=== PATIENT | male | born 1960 | race Caucasian/White ===

== ENCOUNTER 2018-03-18 18:06 | Inpatient (IN) | payer MEDICAID, OTHER ==
[~2018-03-18] VITALS: Ht 188 cm; Wt 90.7 kg
[2018-03-18 19:56] LABS: Basophils # (auto) 0.1 uL; Eosinophils # (auto) 0.1 uL; Eosinophils % (auto) 1.9 % (0.0-7.0); Hematocrit 45.5 % (41.0-53.0); Hemoglobin 15.9 g/dL (13.5-17.5); Lymphocytes # (auto) 1.8 uL; Lymphocytes % (auto) 26.6 % (10.0-50.0); Mean Corpuscular Hemoglobin 32.2 pg (28.0-32.0); Mean Corpuscular Hgb Conc. 34.9 g/dL (32.0-36.0); Mean Corpuscular Volume 92.2 fL (80.0-100.0); Monocytes # (auto) 0.4 uL; Monocytes % (auto) 5.2 % (0.0-12.0); Neutrophils # (auto) 4.5 uL; Neutrophils % (auto) 65.3 % (37.0-80.0); Nucleated Red Blood Cells % 0.1 %; Platelet Count (auto) 175 10^3/uL (140-450); Red Blood Cells 4.93 10^6/uL (4.5-5.90); White Blood Cell 6.9 10^3/uL (4.4-10.8)
[2018-03-18 20:39] LABS: Alanine Aminotransferase 26 U/L (16-61); Albumin 3.5 g/dL (3.4-5.0); Anion Gap 10 (5-15); Aspartate Aminotransferase 15 U/L (15-37); BUN/Creatinine Ratio 5.3; Blood Urea Nitrogen 8 mg/dL (7-18); Calcium 8.2 mg/dL (8.5-10.1); Carbon Dioxide 25 mmol/L (21-32); Chloride 110 mmol/L (98-107); GFR African American 62 mL/min; GFR Non-African American 51 mL/min; Glucose 98 mg/dL (74-106); INR 2.36 (0.9-1.15); Partial Thromboplastin Time 31.2 sec (23.78-33.04); Potassium 3.8 mmol/L (3.5-5.1); Prothrombin Time 24.1 sec (9.27-12.13); Sodium 145 mmol/L (136-145)
[2018-03-18 20:43] LABS: Alkaline Phosphatase 132 U/L (45-117); Bilirubin, Total 0.3 mg/dL (0.2-1.0); Total Protein 7.2 g/dL (6.4-8.2)
[2018-03-18] MEDS ORDERED: ONDANSETRON HCL 4 MG/2 ML VIAL IV ONE (22:15)
[2018-03-18] MEDS ORDERED: ASPirin 81 mg TAB PO ONE (22:15)
[2018-03-18] MEDS ORDERED: MORPHINE SULF INJ 2 MG/ML SYRINGE 1ML IV ONE (22:15)
[2018-03-18] MEDS ORDERED: NITROGLYCERIN 0.4 MG SL TAB SL PRN (23:30)
[2018-03-18] MEDS ORDERED: MORPHINE SULF INJ 2 MG/ML SYRINGE 1ML IV PRN (23:30)
[2018-03-18] MEDS ORDERED: ACETAMINOPHEN 500 MG TAB PO PRN (23:30)
[2018-03-18] MEDS ORDERED: ONDANSETRON HCL 4 MG/2 ML VIAL IV PRN (23:30)
[2018-03-19] VITALS (8 sets, daily range): BP systolic 129–162; BP diastolic 83–99
[2018-03-19 00:51] LABS: Anion Gap 9 (5-15); BUN/Creatinine Ratio 6.9; Blood Urea Nitrogen 9 mg/dL (7-18); Calcium 7.7 mg/dL (8.5-10.1); Carbon Dioxide 23 mmol/L (21-32); Chloride 113 mmol/L (98-107); GFR African American 72 mL/min; GFR Non-African American 60 mL/min; Glucose 118 mg/dL (74-106); Potassium 3.4 mmol/L (3.5-5.1); Sodium 145 mmol/L (136-145)
[2018-03-19] MEDS ORDERED: HYDROcodone-ACET 5/325MG TAB PO PRN (01:30)
[2018-03-19] MEDS: MORPHINE SULF INJ 2 MG/ML SYRINGE 1ML IV PRN ×3 (01:55→14:10)
[2018-03-19 07:39] LABS: INR 2.29 (0.9-1.15); Partial Thromboplastin Time 31.2 sec (23.78-33.04); Prothrombin Time 23.4 sec (9.27-12.13)
[2018-03-19 07:51] LABS: Basophils # (auto) 0 uL; Basophils % (auto) 0.8 % (0.0-2.0); Eosinophils # (auto) 0.2 uL; Eosinophils % (auto) 2.9 % (0.0-7.0); Hematocrit 42.7 % (41.0-53.0); Hemoglobin 14.7 g/dL (13.5-17.5); Lymphocytes % (auto) 35.3 % (10.0-50.0); Mean Corpuscular Hemoglobin 31.9 pg (28.0-32.0); Mean Corpuscular Hgb Conc. 34.5 g/dL (32.0-36.0); Mean Corpuscular Volume 92.3 fL (80.0-100.0); Monocytes # (auto) 0.3 uL; Neutrophils # (auto) 3.1 uL; Nucleated Red Blood Cells % 0.1 %; Platelet Count (auto) 159 10^3/uL (140-450); Red Blood Cells 4.62 10^6/uL (4.5-5.90); Red Cell Distribution Width 14.8 % (11.8-14.3); White Blood Cell 5.7 10^3/uL (4.4-10.8)
[2018-03-19] MEDS: NICOTINE 14 MG/24HR TOPICAL PATCH TD SCH (09:13)
[2018-03-19] MEDS: METOPROLOL SUCCINATE XL 50 MG TAB PO SCH (09:14)
[2018-03-19] MEDS: amLODIPine BESYLATE 5 MG TAB PO SCH (09:14)
[2018-03-19] MEDS: FAMOTIDINE 20 MG TAB PO SCH (09:14)
[2018-03-19] MEDS ORDERED: IOHEXOL 350 MG/ML 100ML IJ ONE (12:21)
[2018-03-19] MEDS ORDERED: WARF6TAB21 PO ×2 (13:10)
[2018-03-19] MEDS ORDERED: AMLO5TAB2 PO (13:10)
[2018-03-19] MEDS ORDERED: OMEP20TA PO (13:10)
[2018-03-19] MEDS ORDERED: TAMS0.4C36 PO (13:10)
[2018-03-19] MEDS ORDERED: METO-169 PO (13:10)
[2018-03-19] MEDS ORDERED: NIAC1TAB PO (13:10)
[2018-03-19] MEDS ORDERED: ALLO300T2 PO (13:10)
[2018-03-19] MEDS ORDERED: ATOR80TA PO (13:10)
[2018-03-19] MEDS: WARFARIN SODIUM 2 MG TAB PO SCH (17:00)
[2018-03-19] MEDS: TAMSULOSIN HYDROCHLORIDE 0.4 MG CAP PO SCH (17:12)
[2018-03-19] MEDS: WARFARIN SODIUM 1 MG TAB PO SCH (17:12)
[2018-03-19] MEDS: ALBUTEROL SULF 2.5 MG/0.5ML(0.5%) NEB SOLN NEB PRN (19:24)
[2018-03-19] MEDS: Niacin SR 500mg TAB PO SCH (22:03)
[2018-03-19] MEDS: ATORVASTATIN 20 MG TAB PO SCH (22:03)
[2018-03-19] MEDS: TEMAZEPAM 15 MG CAP PO PRN (22:04)
[2018-03-20] MEDS: MORPHINE SULF INJ 2 MG/ML SYRINGE 1ML IV PRN ×5 (00:41→23:41)
[2018-03-20 05:15] VITALS: BP 126/79
[2018-03-20 06:30] LABS: Basophils # (auto) 0 uL; Basophils % (auto) 0.6 % (0.0-2.0); Eosinophils # (auto) 0.1 uL; Eosinophils % (auto) 1.8 % (0.0-7.0); Hematocrit 44.7 % (41.0-53.0); Hemoglobin 15.4 g/dL (13.5-17.5); Lymphocytes # (auto) 1.9 uL; Lymphocytes % (auto) 29.6 % (10.0-50.0); Mean Corpuscular Hemoglobin 31.8 pg (28.0-32.0); Mean Corpuscular Hgb Conc. 34.5 g/dL (32.0-36.0); Mean Corpuscular Volume 92.3 fL (80.0-100.0); Monocytes # (auto) 0.4 uL; Monocytes % (auto) 5.7 % (0.0-12.0); Neutrophils # (auto) 3.9 uL; Neutrophils % (auto) 62.3 % (37.0-80.0); Nucleated Red Blood Cells % 0.1 %; Platelet Count (auto) 146 10^3/uL (140-450); Red Blood Cells 4.85 10^6/uL (4.5-5.90); Red Cell Distribution Width 14.6 % (11.8-14.3); White Blood Cell 6.3 10^3/uL (4.4-10.8)
[2018-03-20 06:48] LABS: INR 2.16 (0.9-1.15); Partial Thromboplastin Time 30.7 sec (23.78-33.04); Prothrombin Time 22.1 sec (9.27-12.13)
[2018-03-20 06:58] LABS: Anion Gap 8 (5-15); BUN/Creatinine Ratio 8.8; Blood Urea Nitrogen 11 mg/dL (7-18); Calcium 8.1 mg/dL (8.5-10.1); Carbon Dioxide 26 mmol/L (21-32); Chloride 106 mmol/L (98-107); GFR African American 76 mL/min; GFR Non-African American 63 mL/min; Glucose 95 mg/dL (74-106); Potassium 3.8 mmol/L (3.5-5.1); Sodium 140 mmol/L (136-145)
[2018-03-20 07:58] VITALS: BP 129/84
[2018-03-20 08:00] VITALS: BP 129/84
[2018-03-20] MEDS: FAMOTIDINE 20 MG TAB PO SCH (09:50)
[2018-03-20] MEDS: METOPROLOL SUCCINATE XL 50 MG TAB PO SCH (09:50)
[2018-03-20] MEDS: amLODIPine BESYLATE 5 MG TAB PO SCH (09:50)
[2018-03-20] MEDS: NICOTINE 14 MG/24HR TOPICAL PATCH TD SCH (09:50)
[2018-03-20] MEDS ORDERED: NIACIN 100 MG TAB PO SCH (10:00)
[2018-03-20] MEDS ORDERED: IOHEXOL 350 MG/ML 100ML IJ ONE (10:29)
[2018-03-20] MEDS: predniSONE 20 MG TAB PO SCH (11:29)
[2018-03-20] MEDS: diphenhdrAMINE HCL 25 MG CAP PO SCH (11:29)
[2018-03-20 11:47] VITALS: BP 117/81
[2018-03-20] MEDS ORDERED: predniSONE 20 MG TAB PO ONE ×2 (14:00→21:00)
[2018-03-20] MEDS: TAMSULOSIN HYDROCHLORIDE 0.4 MG CAP PO SCH (17:11)
[2018-03-20] MEDS: WARFARIN SODIUM 2 MG TAB PO SCH (17:11)
[2018-03-20 17:36] VITALS: BP 131/77
[2018-03-20] MEDS: Niacin SR 500mg TAB PO SCH (21:36)
[2018-03-20] MEDS: ATORVASTATIN 20 MG TAB PO SCH (21:36)
[2018-03-20 22:00] VITALS: BP 129/75
[2018-03-20] MEDS: ALBUTEROL SULF 2.5 MG/0.5ML(0.5%) NEB SOLN NEB PRN (23:06)
[2018-03-21] MEDS ORDERED: diphenhdrAMINE HCL 25 MG CAP PO ONE (02:00)
[2018-03-21] MEDS ORDERED: predniSONE 20 MG TAB PO ONE (02:00)
[2018-03-21] MEDS ORDERED: IOHEXOL 350 MG/ML 100ML IJ ONE (02:24)
[2018-03-21 05:00] VITALS: BP 128/76
[2018-03-21 06:48] LABS: Basophils # (auto) 0 uL; Eosinophils # (auto) 0 uL; Hematocrit 47.8 % (41.0-53.0); Hemoglobin 16.3 g/dL (13.5-17.5); Lymphocytes # (auto) 0.7 uL; Lymphocytes % (auto) 4.4 % (10.0-50.0); Mean Corpuscular Hemoglobin 31.2 pg (28.0-32.0); Mean Corpuscular Hgb Conc. 34.1 g/dL (32.0-36.0); Mean Corpuscular Volume 91.6 fL (80.0-100.0); Monocytes # (auto) 0.1 uL; Neutrophils # (auto) 14.1 uL; Neutrophils % (auto) 94.6 % (37.0-80.0); Platelet Count (auto) 173 10^3/uL (140-450); Red Blood Cells 5.22 10^6/uL (4.5-5.90); Red Cell Distribution Width 14.4 % (11.8-14.3); White Blood Cell 14.9 10^3/uL (4.4-10.8)
[2018-03-21 07:02] LABS: INR 2.82 (0.9-1.15); Partial Thromboplastin Time 31.3 sec (23.78-33.04); Prothrombin Time 28.5 sec (9.27-12.13)
[2018-03-21 07:09] LABS: BUN/Creatinine Ratio 10.8; Calcium 8.4 mg/dL (8.5-10.1); Potassium 4.5 mmol/L (3.5-5.1)
[2018-03-21 07:45] LABS: Basophils # (auto) 0 uL; Basophils % (auto) 0.1 % (0.0-2.0); Eosinophils # (auto) 0 uL; Hematocrit 47.4 % (41.0-53.0); Hemoglobin 16.3 g/dL (13.5-17.5); Lymphocytes # (auto) 0.8 uL; Lymphocytes % (auto) 4.3 % (10.0-50.0); Mean Corpuscular Hemoglobin 31.5 pg (28.0-32.0); Mean Corpuscular Hgb Conc. 34.4 g/dL (32.0-36.0); Mean Corpuscular Volume 91.5 fL (80.0-100.0); Monocytes # (auto) 0.2 uL; Neutrophils # (auto) 16.5 uL; Neutrophils % (auto) 94.6 % (37.0-80.0); Nucleated Red Blood Cells % 0.4 %; Platelet Count (auto) 182 10^3/uL (140-450); Red Blood Cells 5.18 10^6/uL (4.5-5.90); Red Cell Distribution Width 14.6 % (11.8-14.3); White Blood Cell 17.5 10^3/uL (4.4-10.8)
[2018-03-21 09:01] VITALS: BP 122/74
[2018-03-21] MEDS: diphenhdrAMINE HCL 25 MG CAP PO SCH (09:06)
[2018-03-21] MEDS: FAMOTIDINE 20 MG TAB PO SCH (09:06)
[2018-03-21] MEDS: MORPHINE SULF INJ 2 MG/ML SYRINGE 1ML IV PRN ×3 (09:06→21:00)
[2018-03-21] MEDS: METOPROLOL SUCCINATE XL 50 MG TAB PO SCH (09:07)
[2018-03-21] MEDS: amLODIPine BESYLATE 5 MG TAB PO SCH (09:07)
[2018-03-21] MEDS: predniSONE 20 MG TAB PO SCH (09:07)
[2018-03-21] MEDS: NICOTINE 14 MG/24HR TOPICAL PATCH TD SCH (09:08)
[2018-03-21 13:00] VITALS: BP 103/59
[2018-03-21 17:00] VITALS: BP 114/73
[2018-03-21] MEDS: WARFARIN SODIUM 1 MG TAB PO SCH (17:00)
[2018-03-21] MEDS: WARFARIN SODIUM 2 MG TAB PO SCH (17:00)
[2018-03-21] MEDS: TAMSULOSIN HYDROCHLORIDE 0.4 MG CAP PO SCH (17:16)
[2018-03-21 22:00] VITALS: BP 120/77
[2018-03-21] MEDS: TEMAZEPAM 15 MG CAP PO PRN (22:15)
[2018-03-21] MEDS: ATORVASTATIN 20 MG TAB PO SCH (22:15)
[2018-03-21] MEDS: Niacin SR 500mg TAB PO SCH (22:15)
[2018-03-22 05:00] VITALS: BP 104/70
[2018-03-22 07:29] LABS: Basophils # (auto) 0 uL; Eosinophils # (auto) 0 uL; Hematocrit 44.2 % (41.0-53.0); Lymphocytes # (auto) 1.6 uL; Lymphocytes % (auto) 8.5 % (10.0-50.0); Mean Corpuscular Hemoglobin 31.4 pg (28.0-32.0); Mean Corpuscular Hgb Conc. 33.9 g/dL (32.0-36.0); Mean Corpuscular Volume 92.6 fL (80.0-100.0); Monocytes # (auto) 0.5 uL; Neutrophils # (auto) 16.3 uL; Neutrophils % (auto) 88.5 % (37.0-80.0); Platelet Count (auto) 176 10^3/uL (140-450); Red Blood Cells 4.77 10^6/uL (4.5-5.90); Red Cell Distribution Width 14.7 % (11.8-14.3); White Blood Cell 18.4 10^3/uL (4.4-10.8)
[2018-03-22 07:39] LABS: INR 2.99 (0.9-1.15); Partial Thromboplastin Time 28.8 sec (23.78-33.04); Prothrombin Time 30.1 sec (9.27-12.13)
[2018-03-22 07:47] LABS: Albumin 3.1 g/dL (3.4-5.0); BUN/Creatinine Ratio 18.1; Bilirubin, Total 0.4 mg/dL (0.2-1.0); Potassium 3.8 mmol/L (3.5-5.1); Total Protein 6.2 g/dL (6.4-8.2)
[2018-03-22 09:00] VITALS: BP 119/76
[2018-03-22 09:43] VITALS: BP 119/76
[2018-03-22] MEDS: MORPHINE SULF INJ 2 MG/ML SYRINGE 1ML IV PRN ×3 (10:29→21:50)
[2018-03-22] MEDS: diphenhdrAMINE HCL 25 MG CAP PO SCH (10:33)
[2018-03-22] MEDS: amLODIPine BESYLATE 5 MG TAB PO SCH (10:34)
[2018-03-22] MEDS: predniSONE 20 MG TAB PO SCH (10:34)
[2018-03-22] MEDS: FAMOTIDINE 20 MG TAB PO SCH (10:35)
[2018-03-22] MEDS: METOPROLOL SUCCINATE XL 50 MG TAB PO SCH (10:35)
[2018-03-22] MEDS: NICOTINE 14 MG/24HR TOPICAL PATCH TD SCH (10:36)
[2018-03-22] MEDS: SOD CHL 0.45% 1,000 ML IV SCH ×2 (10:45→20:45)
[2018-03-22 13:00] VITALS: BP 127/81
[2018-03-22 17:02] VITALS: BP 139/80
[2018-03-22] MEDS: TAMSULOSIN HYDROCHLORIDE 0.4 MG CAP PO SCH (17:25)
[2018-03-22] MEDS: ALBUTEROL SULF 2.5 MG/0.5ML(0.5%) NEB SOLN NEB PRN (19:49)
[2018-03-22] MEDS: ATORVASTATIN 20 MG TAB PO SCH (21:48)
[2018-03-22] MEDS: Niacin SR 500mg TAB PO SCH (21:49)
[2018-03-22] MEDS: TEMAZEPAM 15 MG CAP PO PRN (21:49)
[2018-03-22 22:00] VITALS: BP 141/86
[2018-03-23] MEDS: MORPHINE SULF INJ 2 MG/ML SYRINGE 1ML IV PRN ×3 (03:27→22:06)
[2018-03-23] MEDS: SOD CHL 0.45% 1,000 ML IV SCH ×2 (03:39→16:45)
[2018-03-23 04:37] VITALS: BP 127/89
[2018-03-23] MEDS ORDERED: IODIXANOL 320MG/ML 100ML BTL IV ONE ×2 (07:14→09:17)
[2018-03-23] MEDS ORDERED: LIDOCAINE 2%HCL (LOCAL ANESTH.) INJ 10ml MDV ONE (07:14)
[2018-03-23 07:39] LABS: Basophils # (auto) 0 uL; Basophils % (auto) 0.1 % (0.0-2.0); Eosinophils # (auto) 0 uL; Hematocrit 44.6 % (41.0-53.0); Hemoglobin 15.5 g/dL (13.5-17.5); Lymphocytes # (auto) 1.9 uL; Lymphocytes % (auto) 15.1 % (10.0-50.0); Mean Corpuscular Hemoglobin 31.9 pg (28.0-32.0); Mean Corpuscular Hgb Conc. 34.7 g/dL (32.0-36.0); Monocytes # (auto) 0.7 uL; Monocytes % (auto) 5.5 % (0.0-12.0); Neutrophils # (auto) 9.8 uL; Neutrophils % (auto) 79.3 % (37.0-80.0); Nucleated Red Blood Cells % 0.1 %; Platelet Count (auto) 165 10^3/uL (140-450); Red Blood Cells 4.85 10^6/uL (4.5-5.90); Red Cell Distribution Width 14.8 % (11.8-14.3); White Blood Cell 12.3 10^3/uL (4.4-10.8)
[2018-03-23] MEDS ORDERED: FAMOTIDINE (10MG/ML) 2ML VL IV ONE (07:45)
[2018-03-23 07:52] LABS: INR 1.95 (0.9-1.15); Partial Thromboplastin Time 26.4 sec (23.78-33.04); Prothrombin Time 20.1 sec (9.27-12.13)
[2018-03-23 07:56] LABS: BUN/Creatinine Ratio 17.3; Calcium 7.8 mg/dL (8.5-10.1)
[2018-03-23] MEDS ORDERED: methylPREDNISolone SOD SUCC 125 MG/2 ML VL ONE (08:54)
[2018-03-23] MEDS ORDERED: fentaNYL CITRATE 100 MCG/2 ML VL ONE (08:55)
[2018-03-23] MEDS ORDERED: diphenhdrAMINE HCL 50 MG/1 ML VL ONE (08:55)
[2018-03-23] MEDS ORDERED: MIDAZOLAM HCL 1MG/1ML-2 ML VIAL ONE (08:55)
[2018-03-23] MEDS ORDERED: ONDANSETRON HCL 4 MG/2 ML VIAL ONE (09:02)
[2018-03-23] MEDS ORDERED: ANGIOMAX 250 MG VIAL IV ONE (09:06)
[2018-03-23] MEDS ORDERED: SODIUM CHL 0.9% 50 ML ONE (09:06)
[2018-03-23] MEDS: FAMOTIDINE 20 MG TAB PO SCH (10:00)
[2018-03-23] MEDS: diphenhdrAMINE HCL 25 MG CAP PO SCH (10:00)
[2018-03-23] MEDS ORDERED: TICAGRELOR 90 MG TAB ONE (10:47)
[2018-03-23] MEDS ORDERED: ASPirin 325 MG TAB ONE (11:04)
[2018-03-23] MEDS ORDERED: SODIUM CHLORIDE 0.9% 1,000 ML IV SCH (11:24)
[2018-03-23] MEDS: amLODIPine BESYLATE 5 MG TAB PO SCH (12:48)
[2018-03-23] MEDS: METOPROLOL SUCCINATE XL 50 MG TAB PO SCH (12:49)
[2018-03-23] MEDS: predniSONE 20 MG TAB PO SCH (12:49)
[2018-03-23] MEDS: NICOTINE 14 MG/24HR TOPICAL PATCH TD SCH (12:50)
[2018-03-23 13:37] VITALS: BP 160/104
[2018-03-23 17:31] VITALS: BP 159/101
[2018-03-23] MEDS: TAMSULOSIN HYDROCHLORIDE 0.4 MG CAP PO SCH (18:01)
[2018-03-23 22:00] VITALS: BP 156/97
[2018-03-23] MEDS: ATORVASTATIN 20 MG TAB PO SCH (22:00)
[2018-03-23] MEDS: APIXABAN 5 MG TAB PO SCH ×2 (22:00→23:21)
[2018-03-23] MEDS: TEMAZEPAM 15 MG CAP PO PRN (22:05)
[2018-03-23] MEDS: Niacin SR 500mg TAB PO SCH (22:06)
[2018-03-24] MEDS: SOD CHL 0.45% 1,000 ML IV SCH (02:24)
[2018-03-24 05:00] VITALS: BP 118/63
[2018-03-24 07:53] LABS: Basophils # (auto) 0 uL; Eosinophils # (auto) 0 uL; Hematocrit 46.6 % (41.0-53.0); Hemoglobin 15.9 g/dL (13.5-17.5); Lymphocytes # (auto) 0.9 uL; Mean Corpuscular Hemoglobin 31.2 pg (28.0-32.0); Mean Corpuscular Hgb Conc. 34.1 g/dL (32.0-36.0); Mean Corpuscular Volume 91.3 fL (80.0-100.0); Monocytes # (auto) 0.7 uL; Monocytes % (auto) 4.3 % (0.0-12.0); Neutrophils # (auto) 14.1 uL; Neutrophils % (auto) 89.7 % (37.0-80.0); Platelet Count (auto) 173 10^3/uL (140-450); Red Blood Cells 5.11 10^6/uL (4.5-5.90); Red Cell Distribution Width 14.6 % (11.8-14.3); White Blood Cell 15.7 10^3/uL (4.4-10.8)
[2018-03-24 08:00] VITALS: BP 155/100
[2018-03-24 08:21] LABS: BUN/Creatinine Ratio 19.5; Potassium 4.2 mmol/L (3.5-5.1)
[2018-03-24 09:00] VITALS: BP 155/100
[2018-03-24] MEDS: NICOTINE 14 MG/24HR TOPICAL PATCH TD SCH (10:00)
[2018-03-24] MEDS: diphenhdrAMINE HCL 25 MG CAP PO SCH (10:00)
[2018-03-24] MEDS: APIXABAN 5 MG TAB PO SCH (10:00)
[2018-03-24] MEDS: FAMOTIDINE 20 MG TAB PO SCH (10:00)
[2018-03-24] MEDS ORDERED: CLOPIDOGREL BISULFATE 75 MG TAB PO SCH (10:00)
[2018-03-24] MEDS: MORPHINE SULF INJ 2 MG/ML SYRINGE 1ML IV PRN (10:15)
[2018-03-24] MEDS: predniSONE 20 MG TAB PO SCH (10:27)
[2018-03-24] MEDS: amLODIPine BESYLATE 5 MG TAB PO SCH (10:28)
[2018-03-24] MEDS: METOPROLOL SUCCINATE XL 50 MG TAB PO SCH (10:29)
[2018-03-24 10:45] VITALS: BP 155/100
== END 2018-03-24 10:45 | disposition home or self-care (01) | DRG 182 ==
LOC: ER 18:06 → TELE 18:07 → ER 23:11 → TELE-WESTW 03-19 00:50
PROVIDERS: ADMIT Nurse Practitioner Family; ATTEND Internal Medicine
PROC: 037434Z Dilation of Left Subclavian Artery with Drug-eluting Intraluminal Device, Percutaneous Approach (ICD-10-PCS; principal; 2018-03-23)
PROC: B41G1ZZ Fluoroscopy of Left Lower Extremity Arteries using Low Osmolar Contrast (ICD-10-PCS; 2018-03-23)
PROC: B41F1ZZ Fluoroscopy of Right Lower Extremity Arteries using Low Osmolar Contrast (ICD-10-PCS; 2018-03-23)
PROC: B3121ZZ Fluoroscopy of Left Subclavian Artery using Low Osmolar Contrast (ICD-10-PCS; 2018-03-23)
DX: R07.9 Chest pain, unspecified (principal); D66 Hereditary factor VIII deficiency; D68.59 Other primary thrombophilia; E11.22 Type 2 diabetes mellitus with diabetic chronic kidney disease; E11.51 Type 2 diabetes mellitus with diabetic peripheral angiopathy without gangrene; I13.0 Hypertensive heart and chronic kidney disease with heart failure and stage 1 through stage 4 chronic kidney disease, or unspecified chronic kidney disease; I50.9 Heart failure, unspecified; N18.3 Chronic kidney disease, stage 3 (moderate); E44.1 Mild protein-calorie malnutrition; I25.10 Atherosclerotic heart disease of native coronary artery without angina pectoris; I70.8 Atherosclerosis of other arteries; E78.5 Hyperlipidemia, unspecified; F17.210 Nicotine dependence, cigarettes, uncomplicated; J44.9 Chronic obstructive pulmonary disease, unspecified; K21.9 Gastro-esophageal reflux disease without esophagitis; Z95.0 Presence of cardiac pacemaker; Z82.49 Family history of ischemic heart disease and other diseases of the circulatory system; Z79.01 Long term (current) use of anticoagulants; Z86.718 Personal history of other venous thrombosis and embolism; Z86.711 Personal history of pulmonary embolism; Z68.25 Body mass index [BMI] 25.0-25.9, adult; Z91.041 Radiographic dye allergy status
CPT/HCPCS: 36415; 37236; 71045; 71260; 74177; 75716; 76775; 78582; 80048; 80053; 83880; 84484; 85025; 85379; 85610; 85730; 93005; 93306; 93925; 93926; 93930; 93970; 94640; 96374; 96375; 99152; 99153; A6257; J2001; J2250; J2405; J3490; Q9967

== ENCOUNTER 2018-03-26 21:09 | Inpatient (IN) | payer MEDICAID ==
[~2018-03-26] VITALS: Ht 188 cm; Wt 87.1 kg
[~2018-03-26 21:09] MED LIST: ALLO300T2 PO; AMLO5TAB2 PO; ATOR80TA PO; METO-169 PO; NIAC1TAB PO; OMEP20TA PO; TAMS0.4C36 PO; WARF6TAB21 PO
[2018-03-26] MEDS ORDERED: MORPHINE SULF INJ 2 MG/ML SYRINGE 1ML IV ONE (22:15)
[2018-03-26 23:12] LABS: Basophils # (auto) 0 uL; Basophils % (auto) 0.2 % (0.0-2.0); Eosinophils # (auto) 0.2 uL; Eosinophils % (auto) 1.7 % (0.0-7.0); Hematocrit 45.6 % (41.0-53.0); Hemoglobin 15.6 g/dL (13.5-17.5); Lymphocytes # (auto) 2.8 uL; Lymphocytes % (auto) 20.6 % (10.0-50.0); Mean Corpuscular Hemoglobin 31.5 pg (28.0-32.0); Mean Corpuscular Hgb Conc. 34.1 g/dL (32.0-36.0); Mean Corpuscular Volume 92.4 fL (80.0-100.0); Monocytes # (auto) 1.1 uL; Monocytes % (auto) 8.5 % (0.0-12.0); Neutrophils # (auto) 9.2 uL; Nucleated Red Blood Cells % 0.1 %; Platelet Count (auto) 169 10^3/uL (140-450); Red Blood Cells 4.93 10^6/uL (4.5-5.90); Red Cell Distribution Width 14.7 % (11.8-14.3); White Blood Cell 13.3 10^3/uL (4.4-10.8)
[2018-03-26 23:27] LABS: INR 1.18 (0.9-1.15); Partial Thromboplastin Time 23.8 sec (23.78-33.04); Prothrombin Time 12.5 sec (9.27-12.13)
[2018-03-26 23:28] LABS: Albumin 3.4 g/dL (3.4-5.0); BUN/Creatinine Ratio 15.4; Calcium 7.7 mg/dL (8.5-10.1)
[2018-03-26 23:31] LABS: Bilirubin, Total 0.5 mg/dL (0.2-1.0); Total Protein 6.7 g/dL (6.4-8.2)
[2018-03-27] MEDS ORDERED: SODIUM CHLORIDE 0.9% 1,000 ML IV ONE (00:45)
[2018-03-27] MEDS ORDERED: HYDROcodone-ACET 10/325MG TAB PO ONE (00:45)
[2018-03-27] MEDS ORDERED: SODIUM CHLORIDE 0.9% 1,000 ML IV SCH (07:30)
[2018-03-27] MEDS ORDERED: HYDROcodone-ACET 5/325MG TAB PO PRN (07:30)
[2018-03-27] MEDS ORDERED: ACETAMINOPHEN 325 MG TAB PO PRN (07:30)
[2018-03-27] MEDS ORDERED: MORPHINE SULF INJ 2 MG/ML SYRINGE 1ML IV PRN (07:30)
[2018-03-27] MEDS ORDERED: PANTOPRAZOLE 40 MG TAB PO SCH (10:00)
[2018-03-27 11:00] LABS: Urine Bacteria NONE SEEN /hpf (None Seen); Urine Blood Negative /uL (Negative); Urine Specific Gravity 1.015 (1.001-1.035); Urine WBC <1 /hpf (0 - 3)
[2018-03-27 11:14] VITALS: BP 119/79
[2018-03-27] MEDS ORDERED: WARFARIN SODIUM 2 MG TAB PO SCH (17:00)
[2018-03-27] MEDS ORDERED: ATORVASTATIN 20 MG TAB PO SCH (22:00)
== END 2018-03-27 13:07 | disposition home or self-care (01) | DRG 207 ==
LOC: ER 21:09 → OVERFLOW 21:10
PROVIDERS: ADMIT Nurse Practitioner Family; ATTEND Internal Medicine
DX: I95.2 Hypotension due to drugs (principal); I42.9 Cardiomyopathy, unspecified; E11.22 Type 2 diabetes mellitus with diabetic chronic kidney disease; I50.9 Heart failure, unspecified; I13.0 Hypertensive heart and chronic kidney disease with heart failure and stage 1 through stage 4 chronic kidney disease, or unspecified chronic kidney disease; N18.3 Chronic kidney disease, stage 3 (moderate); D72.829 Elevated white blood cell count, unspecified; E78.5 Hyperlipidemia, unspecified; F17.210 Nicotine dependence, cigarettes, uncomplicated; I25.10 Atherosclerotic heart disease of native coronary artery without angina pectoris; I48.91 Unspecified atrial fibrillation; K21.9 Gastro-esophageal reflux disease without esophagitis; T50.905A Adverse effect of unspecified drugs, medicaments and biological substances, initial encounter; N40.0 Benign prostatic hyperplasia without lower urinary tract symptoms; S30.811A Abrasion of abdominal wall, initial encounter; Y83.8 Other surgical procedures as the cause of abnormal reaction of the patient, or of later complication, without mention of misadventure at the time of the procedure; Y92.89 Other specified places as the place of occurrence of the external cause; Y93.89 Activity, other specified; Z80.3 Family history of malignant neoplasm of breast; Z82.49 Family history of ischemic heart disease and other diseases of the circulatory system; I25.2 Old myocardial infarction; Z85.038 Personal history of other malignant neoplasm of large intestine; Z86.711 Personal history of pulmonary embolism; Z86.718 Personal history of other venous thrombosis and embolism; Z95.0 Presence of cardiac pacemaker; Z79.899 Other long term (current) drug therapy; Z79.01 Long term (current) use of anticoagulants; Z91.041 Radiographic dye allergy status
CPT/HCPCS: 36415; 76870; 76881; 80053; 81001; 85025; 85610; 85730; 86850; 86900; 86901; 93926; 96361; 96374

== ENCOUNTER → 2018-08-16 | Outpatient (CLI) | payer MEDICAID ==
[~2018-08-16] VITALS: Ht 188 cm; Wt 88.5 kg
[~2018-08-16] MED LIST changes: +AMLO5TAB13 PO; -AMLO5TAB2 PO; +cloNIDine HCL 0.1 MG TAB ONE
== END | disposition home or self-care (01) ==
LOC: Rad HDHVI 14:22
PROVIDERS: ATTEND Internal Medicine Cardiovascular Disease
DX: I20.9 Angina pectoris, unspecified (principal); I47.1 Supraventricular tachycardia; I73.9 Peripheral vascular disease, unspecified; I49.5 Sick sinus syndrome; I47.2 Ventricular tachycardia; E11.9 Type 2 diabetes mellitus without complications
CPT/HCPCS: 78452; 93017; 93306; 96374; A9500

== ENCOUNTER 2019-11-16 21:54 | Inpatient (IN) | payer MEDICAID ==
[~2019-11-16] VITALS: Ht 188 cm; Wt 88.4 kg
[~2019-11-16 21:54] MED LIST changes: -AMLO5TAB13 PO; +AMLO5TAB15 PO; -NIAC1TAB PO; +NIAC1TAB30 PO; -cloNIDine HCL 0.1 MG TAB ONE
[2019-11-16] MEDS ORDERED: methylPREDNISolone SOD SUCC 125 MG/2 ML VL IV ONE (22:15)
[2019-11-16] MEDS ORDERED: NITROGLYCERIN 0.4 MG SL TAB SL ONE (22:15)
[2019-11-16] MEDS ORDERED: FAMOTIDINE (10MG/ML) 2ML VL IV ONE (22:15)
[2019-11-16] MEDS ORDERED: ONDANSETRON HCL 4 MG/2 ML VIAL IV ONE (22:15)
[2019-11-16] MEDS ORDERED: MORPHINE SULFATE 10 MG/ML INJ 1ML SDV IV ONE (22:15)
[2019-11-16] MEDS ORDERED: diphenhdrAMINE HCL 50 MG/1 ML VL IV ONE (22:15)
[2019-11-16] MEDS ORDERED: ASPirin 325 MG TAB PO ONE (22:15)
[2019-11-16 22:49] LABS: Basophils # (auto) 0.1 10 ^3/uL (0-0.2); Basophils % (auto) 0.7 % (0.0-2.0); Eosinophils # (auto) 0.1 10 ^3/uL (0-0.8); Eosinophils % (auto) 0.8 % (0.0-7.0); Hematocrit 45.8 % (41.0-53.0); Hemoglobin 15.6 g/dL (13.5-17.5); Lymphocytes # (auto) 1.1 10 ^3/uL (0.4-5.4); Lymphocytes % (auto) 12.9 % (10.0-50.0); Monocytes # (auto) 0.5 10 ^3/uL (0-1.3); Monocytes % (auto) 5.8 % (0.0-12.0); Neutrophils % (auto) 79.8 % (37.0-80.0); Nucleated Red Blood Cells % 0.3 %; Platelet Count (auto) 211 10^3/uL (140-450); Red Blood Cells 5.04 10^6/uL (4.5-5.90); Red Cell Distribution Width 14.1 % (11.8-14.3); White Blood Cell 8.8 10^3/uL (4.4-10.8)
[2019-11-16 23:00] LABS: INR 2.79 (0.9-1.15); Partial Thromboplastin Time 39.6 sec (23.64-32.05)
[2019-11-16 23:21] LABS: Albumin 3.4 g/dL (3.4-5.0); Calcium 8.2 mg/dL (8.5-10.1); Magnesium 1.5 mg/dL (1.6-2.6); Potassium 3.8 mmol/L (3.5-5.1)
[2019-11-16 23:24] LABS: BUN/Creatinine Ratio 9.3
[2019-11-16 23:29] LABS: Bilirubin, Total 0.8 mg/dL (0.2-1.0)
[2019-11-16] MEDS ORDERED: MORPHINE SULFATE 4 MG/ML SYR/VIAL IV PRN (23:45)
[2019-11-16] MEDS ORDERED: DEXTROSE (50%) 50ML SYRG IV PRN (23:45)
[2019-11-16] MEDS ORDERED: ONDANSETRON HCL 4 MG/2 ML VIAL IV PRN (23:45)
[2019-11-16] MEDS ORDERED: HYDROcodone-ACET 5/325MG TAB PO PRN (23:45)
[2019-11-16] MEDS ORDERED: ACETAMINOPHEN 325 MG TAB PO PRN (23:45)
[2019-11-16] MEDS ORDERED: DOCUSATE SOD 100 MG CAP PO PRN (23:45)
[2019-11-17] VITALS (7 sets, daily range): BP systolic 93–137; BP diastolic 61–93
[2019-11-17] MEDS: SODIUM CHLORIDE 0.9% 1,000 ML IV SCH ×3 (00:45→16:11)
[2019-11-17] MEDS: ACCU-CHEK COMFORT CURVE STRIP VI SCH ×6 (00:55→20:00)
[2019-11-17] MEDS: InsuLIN REG 1unit/0.01ml Soln (100units/ml) SC SCH ×6 (01:00→20:00)
[2019-11-17] MEDS: MORPHINE SULF INJ 2 MG/ML SYRINGE 1ML IV PRN ×5 (01:21→18:21)
--- NOTE | 2019-11-17 01:45 | NUR ---
Telemetry admit from ER JASON PAZ admitted to Telemetry unit after SBAR received. Patient oriented to Ovidio coulter RN, unit, room, bed, and unit policies regarding patient care and visiting hours. Patient now on continuous telemetry monitoring, tele box # [id number] and telemetry reading on arrival to unit is NSR. Patient placed on bedside oxygen, weighed by bedscale and encouraged to call if they need something. All questions and concerns addressed, patient verbalized understanding.
[2019-11-17] MEDS: NITROGLYCERIN 0.4 MG SL TAB SL PRN ×2 (02:25→02:30)
--- NOTE | 2019-11-17 02:25 | NUR ---
Pt c/o Chest pain 7/10 placed on O2 4 l NC. Nitro 1 tab sl given.
--- NOTE | 2019-11-17 02:30 | NUR ---
Chest pain 7/10 I tab Sl given.
--- NOTE | 2019-11-17 02:45 | NUR ---
Chest pain 7/10 persisting Morphine 2 mg per protocol given. Paged Hospitalist.
--- NOTE | 2019-11-17 02:47 | NUR ---
Hospitalist called back. no new orders, awaiting cardio consult.
[2019-11-17 05:23] LABS: Basophils # (auto) 0 10 ^3/uL (0-0.2); Basophils % (auto) 0.1 % (0.0-2.0); Eosinophils # (auto) 0 10 ^3/uL (0-0.8); Hemoglobin 15.6 g/dL (13.5-17.5); Lymphocytes # (auto) 0.3 10 ^3/uL (0.4-5.4); Lymphocytes % (auto) 5.8 % (10.0-50.0); Mean Corpuscular Hemoglobin 31.1 pg (28.0-32.0); Mean Corpuscular Hgb Conc. 34.7 g/dL (32.0-36.0); Mean Corpuscular Volume 89.7 fL (80.0-100.0); Monocytes # (auto) 0 10 ^3/uL (0-1.3); Monocytes % (auto) 0.9 % (0.0-12.0); Neutrophils # (auto) 5.2 10 ^3/uL (1.6-8.6); Neutrophils % (auto) 93.2 % (37.0-80.0); Platelet Count (auto) 203 10^3/uL (140-450); Red Blood Cells 5.01 10^6/uL (4.5-5.90); White Blood Cell 5.6 10^3/uL (4.4-10.8)
--- NOTE | 2019-11-17 05:45 | NUR ---
Called hospitalist with the Trop result of 6.44. No new orders.
[2019-11-17 06:27] LABS: INR 2.67 (0.9-1.15); Partial Thromboplastin Time 39.9 sec (23.64-32.05)
[2019-11-17 07:28] LABS: Albumin 3.3 g/dL (3.4-5.0); Calcium 8.5 mg/dL (8.5-10.1); Potassium 4.4 mmol/L (3.5-5.1)
[2019-11-17 07:31] LABS: BUN/Creatinine Ratio 10.5; Bilirubin, Total 0.6 mg/dL (0.2-1.0); Total Protein 7.2 g/dL (6.4-8.2)
--- NOTE | 2019-11-17 07:50 | NUR ---
Opening Shift Note Assumed care of patient, awake and alert sitting up in bed eating breakfast. No S/S of distress/SOB or pain. Instructed on POC and to call for assist PRN, will continue to monitor for changes Q1hr and PRN.
[2019-11-17] MEDS: ALLOPURINOL 300 MG TAB PO SCH (09:43)
[2019-11-17] MEDS: PANTOPRAZOLE 40 MG TAB PO SCH (09:43)
[2019-11-17] MEDS: METOPROLOL SUCCINATE XL 50 MG TAB PO SCH (09:46)
[2019-11-17] MEDS: FUROSEMIDE 40 MG TAB PO SCH (09:47)
[2019-11-17] MEDS: amLODIPine BESYLATE 5 MG TAB PO SCH (09:49)
[2019-11-17] MEDS ORDERED: phytonadione 10 MG in SODIUM CHL 0.9% 50 ML IV ONE (13:15)
--- NOTE | 2019-11-17 15:24 | NUR ---
NUTRITION CONSULT/ ASSESSMENT NOTES Please refer to link notes of nutrition screen form filed under the intervention section of the plan of care for further details. Est. Energy Needs: 7704-4593 kcal ( 20-25 kcal/kg BW). Est. Protein Needs: 90-99 gms/day ( 1.0-1.1 gms/kg BW). Will continue to monitor pertinent labs and reassess nutrient need prn Addendum: 11/17/19 at [address] Amended: Links added.
[2019-11-17] MEDS ORDERED: WARFARIN SODIUM 2 MG TAB PO SCH (17:00)
[2019-11-17] MEDS: ATORVASTATIN 20 MG TAB PO SCH (18:16)
--- NOTE | 2019-11-17 18:20 | NUR ---
Pain Patient complained of chest pain which radiates to the shoulder. Patient refused nitroglycerine stated that the nitroglycerin did not help him previously. Will administer morphine 2mg for chest pain and reassess.
[2019-11-17] MEDS ORDERED: NICOTINE 7MG/24HR TOPICAL PATCH TD ONE (18:45)
--- NOTE | 2019-11-17 19:00 | NUR ---
Opening Shift Note Assumed care of patient, awake and alert. No S/S of distress/SOB or pain. Instructed on POC and to call for assist PRN, will continue to monitor for changes Q1hr and PRN.
[2019-11-17] MEDS ORDERED: MORPHINE SULF INJ 2 MG/ML SYRINGE 1ML IV PRN (19:15)
[2019-11-17] MEDS: TAMSULOSIN HYDROCHLORIDE 0.4 MG CAP PO SCH (21:59)
[2019-11-17] MEDS: ACETYLCYSTEINE ORAL for CIN 20%(200MG/ML) 4ML PO SCH (22:00)
[2019-11-18] MEDS: ACCU-CHEK COMFORT CURVE STRIP VI SCH ×6 (00:24→20:00)
[2019-11-18] MEDS: InsuLIN REG 1unit/0.01ml Soln (100units/ml) SC SCH ×6 (00:26→20:00)
--- NOTE | 2019-11-18 04:35 | NUR ---
Pt c/p7/10 Morphine 2 mg given.Will continue to monitor.
[2019-11-18] MEDS: MORPHINE SULF INJ 2 MG/ML SYRINGE 1ML IV PRN (04:38)
[2019-11-18] MEDS: SODIUM CHLORIDE 0.9% 1,000 ML IV SCH ×2 (04:40→16:10)
[2019-11-18 05:51] VITALS: BP 117/78
[2019-11-18 06:48] LABS: INR 1.19 (0.9-1.15)
[2019-11-18 06:49] LABS: INR 1.17 (0.9-1.15)
[2019-11-18 06:54] LABS: BUN/Creatinine Ratio 18.7; Calcium 7.9 mg/dL (8.5-10.1); Potassium 4.4 mmol/L (3.5-5.1)
--- NOTE | 2019-11-18 07:30 | NUR ---
Opening Shift Note Assumed care of patient, awake and alert. No S/S of distress/SOB or pain. Instructed on POC and to call for assist PRN, will continue to monitor for changes Q1hr and PRN. NPO status maintained.
[2019-11-18 07:50] LABS: Urine Bacteria NONE SEEN /hpf (None Seen); Urine Blood Negative /uL (Negative); Urine Specific Gravity 1.016 (1.001-1.035); Urine WBC <1 /hpf (0 - 3)
[2019-11-18 08:00] VITALS: BP 131/83
[2019-11-18 08:01] LABS: Alcohol, Urine < 3.0 mg/dL (0-5); Amphetamine Screen, Urine POSITIVE (NEGATIVE); Barbiturate Scree,Urine NEGATIVE (NEGATIVE); Benzodiazephine Screen, Urine NEGATIVE (NEGATIVE); Cannabinoid Screen, Urine NEGATIVE (NEGATIVE); Cocaine Screen, Urine NEGATIVE (NEGATIVE); Phencyclidine Screen, Urine NEGATIVE (NEGATIVE)
[2019-11-18 08:09] LABS: Opiate Scree,Urine POSITIVE (NEGATIVE)
--- NOTE | 2019-11-18 09:40 | NUR ---
Consent forms New consent forms signed by patient at this time. Morphine IV administered greater than 4 hours.
--- NOTE | 2019-11-18 09:45 | NUR ---
Norvasc 5mg Patient refused medication at this time, stating that it lowers his blood pressure too much so he has not been taking it at home.
[2019-11-18] MEDS: PANTOPRAZOLE 40 MG TAB PO SCH (09:46)
[2019-11-18] MEDS: ACETYLCYSTEINE ORAL for CIN 20%(200MG/ML) 4ML PO SCH ×2 (09:46→22:53)
[2019-11-18] MEDS: METOPROLOL SUCCINATE XL 50 MG TAB PO SCH (09:47)
[2019-11-18] MEDS: FUROSEMIDE 40 MG TAB PO SCH (09:47)
[2019-11-18] MEDS: ALLOPURINOL 300 MG TAB PO SCH (09:47)
[2019-11-18] MEDS: amLODIPine BESYLATE 5 MG TAB PO SCH (09:48)
[2019-11-18] MEDS: NICOTINE 7MG/24HR TOPICAL PATCH TD SCH (09:48)
--- NOTE | 2019-11-18 09:50 | NUR ---
Off Unit Patient taken to manager labor delivery for LHC.
[2019-11-18] MEDS ORDERED: WARFARIN SODIUM 9 MG PO SCH (10:00)
[2019-11-18] MEDS ORDERED: IODIXANOL 320MG/ML 100ML BTL IV ONE ×3 (10:15→11:48)
[2019-11-18] MEDS ORDERED: LIDOCAINE 2%HCL (LOCAL ANESTH.) INJ 20ML MDV ONE (10:15)
[2019-11-18] MEDS ORDERED: HEPARIN SODIUM (PORCINE) 5000 UNITS/ML 1ML VIAL ONE (10:27)
[2019-11-18] MEDS ORDERED: ANGIOMAX 250 MG VIAL IV ONE (10:27)
[2019-11-18] MEDS ORDERED: VERAPAMIL 2.5MG/ML INJ 2ML VIAL IV ONE (10:27)
[2019-11-18] MEDS ORDERED: MIDAZOLAM HCL 1MG/1ML-2 ML VIAL ONE ×2 (10:29→11:50)
[2019-11-18] MEDS ORDERED: fentaNYL CITRATE 100 MCG/2 ML VL ONE (10:29)
[2019-11-18] MEDS ORDERED: SODIUM CHL 0.9% 50 ML ONE (10:29)
[2019-11-18] MEDS ORDERED: FAMOTIDINE (10MG/ML) 2ML VL IV ONE (11:06)
[2019-11-18] MEDS ORDERED: methylPREDNISolone SOD SUCC 125 MG/2 ML VL ONE (11:06)
[2019-11-18] MEDS ORDERED: diphenhdrAMINE HCL 50 MG/1 ML VL ONE (11:06)
[2019-11-18] MEDS ORDERED: hydrALAZINE HCL 20 MG/ML VL ONE (11:57)
[2019-11-18] MEDS ORDERED: TICAGRELOR 90 MG TAB ONE (12:16)
[2019-11-18] MEDS ORDERED: ASPirin 81 mg TAB ONE (12:18)
--- NOTE | 2019-11-18 13:25 | NUR ---
On unit Patient returned to unit after having [facility] with stent placement. Patient awake and alert and oriented. Patient laying flat in bed and should remain flat until 1430. Bed alarm on and call light placed within reach, patient encouraged to call for assistance as needed. Dressing to right groin dry and intact and vasc band in place to right wrist.
[2019-11-18 16:54] VITALS: BP 123/84
[2019-11-18] MEDS ORDERED: WARFARIN SODIUM 5 MG TAB PO ONE (17:00)
--- NOTE | 2019-11-18 17:38 | NUR ---
Dr. Terrell Phone call with Dr. Terrell regarding patient's concern with taking plavix. He is aware of concerns, however plavix must be given due to indwelling stents. Telephone order to hold Coumadin this PM and resume 11/18. Will notify pharmacy.
[2019-11-18] MEDS: ATORVASTATIN 20 MG TAB PO SCH (18:11)
--- NOTE | 2019-11-18 19:00 | NUR ---
Opening Shift Note Assumed care of patient, awake and alert. No S/S of distress/SOB or pain. Dressing in left groin clean, dry and intact. Instructed on POC and to call for assist PRN, will continue to monitor for changes Q1hr and PRN.
[2019-11-18 21:43] VITALS: BP 141/75
[2019-11-18] MEDS ORDERED: CLOPIDOGREL 300 MG TAB PO ONE (22:00)
[2019-11-18] MEDS: TAMSULOSIN HYDROCHLORIDE 0.4 MG CAP PO SCH (22:54)
[2019-11-19] MEDS: InsuLIN REG 1unit/0.01ml Soln (100units/ml) SC SCH ×4 (04:00→11:26)
[2019-11-19] MEDS: ACCU-CHEK COMFORT CURVE STRIP VI SCH ×4 (04:00→11:26)
[2019-11-19 05:00] VITALS: BP 109/68
[2019-11-19] MEDS: SODIUM CHLORIDE 0.9% 1,000 ML IV SCH (05:15)
[2019-11-19 05:49] LABS: Basophils # (auto) 0 10 ^3/uL (0-0.2); Eosinophils # (auto) 0 10 ^3/uL (0-0.8); Hematocrit 41.6 % (41.0-53.0); Hemoglobin 14.4 g/dL (13.5-17.5); Lymphocytes # (auto) 0.6 10 ^3/uL (0.4-5.4); Lymphocytes % (auto) 4.4 % (10.0-50.0); Mean Corpuscular Hemoglobin 31.3 pg (28.0-32.0); Mean Corpuscular Hgb Conc. 34.5 g/dL (32.0-36.0); Mean Corpuscular Volume 90.8 fL (80.0-100.0); Monocytes # (auto) 0.5 10 ^3/uL (0-1.3); Monocytes % (auto) 3.3 % (0.0-12.0); Neutrophils % (auto) 92.3 % (37.0-80.0); Platelet Count (auto) 203 10^3/uL (140-450); Red Blood Cells 4.58 10^6/uL (4.5-5.90); Red Cell Distribution Width 14.1 % (11.8-14.3); White Blood Cell 14.1 10^3/uL (4.4-10.8)
[2019-11-19 05:57] LABS: INR 1.07 (0.9-1.15)
[2019-11-19 06:03] LABS: Potassium 3.8 mmol/L (3.5-5.1)
[2019-11-19 06:07] LABS: BUN/Creatinine Ratio 19.7
--- NOTE | 2019-11-19 07:45 | NUR ---
Opening Shift Note Assumed care of patient, awake and alert. No S/S of distress/SOB or pain. Dressing to right wrist and right groin dry and intact, no sign or hematoma noted. Instructed on POC and to call for assist PRN, will continue to monitor for changes Q1hr and PRN.
[2019-11-19 08:22] VITALS: BP 137/92
--- NOTE | 2019-11-19 08:25 | NUR ---
[employer]ies[employer] Engineer Rounding Dr. Terrell at bedside.
[2019-11-19] MEDS: PANTOPRAZOLE 40 MG TAB PO SCH (09:15)
[2019-11-19] MEDS: FUROSEMIDE 40 MG TAB PO SCH (09:16)
[2019-11-19] MEDS: METOPROLOL SUCCINATE XL 50 MG TAB PO SCH (09:17)
[2019-11-19] MEDS: NICOTINE 7MG/24HR TOPICAL PATCH TD SCH (09:18)
[2019-11-19] MEDS: ACETYLCYSTEINE ORAL for CIN 20%(200MG/ML) 4ML PO SCH (09:26)
[2019-11-19] MEDS: amLODIPine BESYLATE 5 MG TAB PO SCH (09:26)
[2019-11-19] MEDS ORDERED: CLOPIDOGREL BISULFATE 75 MG TAB PO SCH (10:00)
[2019-11-19] MEDS ORDERED: ALLOPURINOL 100 MG TAB PO SCH (10:00)
[2019-11-19] MEDS ORDERED: CLOP75TA41 PO (10:00)
[2019-11-19] MEDS ORDERED: ENOX80IN SC (11:54)
[2019-11-19 13:12] VITALS: BP 137/92
[2019-11-19 13:47] VITALS: BP 144/89
--- NOTE | 2019-11-19 15:30 | NUR ---
Discharge instructions given as ordered. Encourage to follow up with PMD as instructed. All questions and concerns addressed. Patient verbalized understanding. Medication reconciliation form completed and copy given to patient. IV removed with catheter intact and pressure dressing applied. Telemetry unit returned to ICU. Patient was instructed to parts picker his new medications at the pharmacy. Patient ambulated to vehicle with all personal belongings, accompanied by staff and family member. No distress noted at time of departure.
[2019-11-19] MEDS ORDERED: WARFARIN SODIUM 10 MG TAB PO ONE (17:00)
== END 2019-11-19 13:30 | disposition home or self-care (01) | DRG 174 ==
LOC: ER 21:54 → TELE 21:55 → TELE-WESTW 11-17 01:48
PROVIDERS: ADMIT Hospitalist; ATTEND Hospitalist
PROC: 02713ZZ Dilation of Coronary Artery, Two Arteries, Percutaneous Approach (ICD-10-PCS; principal; 2019-11-18)
PROC: 027135Z Dilation of Coronary Artery, Two Arteries with Two Drug-eluting Intraluminal Devices, Percutaneous Approach (ICD-10-PCS; 2019-11-18)
PROC: 4A023N7 Measurement of Cardiac Sampling and Pressure, Left Heart, Percutaneous Approach (ICD-10-PCS; 2019-11-18)
PROC: B2111ZZ Fluoroscopy of Multiple Coronary Arteries using Low Osmolar Contrast (ICD-10-PCS; 2019-11-18)
PROC: B41F1ZZ Fluoroscopy of Right Lower Extremity Arteries using Low Osmolar Contrast (ICD-10-PCS; 2019-11-18)
DX: I21.4 Non-ST elevation (NSTEMI) myocardial infarction (principal); N17.9 Acute kidney failure, unspecified; I73.9 Peripheral vascular disease, unspecified; N18.9 Chronic kidney disease, unspecified; I12.9 Hypertensive chronic kidney disease with stage 1 through stage 4 chronic kidney disease, or unspecified chronic kidney disease; F15.90 Other stimulant use, unspecified, uncomplicated; Z82.49 Family history of ischemic heart disease and other diseases of the circulatory system; Z80.3 Family history of malignant neoplasm of breast
CPT/HCPCS: 36415; 71045; 75710; 80048; 80053; 80061; 80307; 81001; 82962; 83036; 83735; 83880; 84484; 85025; 85610; 85730; 92920; 92928; 93005; 93306; 93458; 93930; 96365; 96375; 99152; 99153; C1874; C1887; G0378; J1815; J2250; J2405; J3430; J3490; Q9967

== ENCOUNTER → 2020-09-18 | Outpatient (CLI) | payer MEDICAID ==
[~2020-09-18] MED LIST changes: +AMLO-489 PO; -AMLO5TAB15 PO; +CLOP75TA70 PO; +ENOX80IN SC
== END | disposition home or self-care (01) ==
LOC: Rad HDHVI 10:56
PROVIDERS: ATTEND Internal Medicine
DX: I05.8 Other rheumatic mitral valve diseases (principal); I25.10 Atherosclerotic heart disease of native coronary artery without angina pectoris; R07.9 Chest pain, unspecified
CPT/HCPCS: 93306

== ENCOUNTER → 2020-09-29 | Outpatient (CLI) | payer MEDICAID ==
[~2020-09-29] VITALS: Ht 188 cm; Wt 93.0 kg
== END | disposition home or self-care (01) ==
LOC: Rad HDHVI 13:29
PROVIDERS: ATTEND Internal Medicine Cardiovascular Disease
DX: I25.10 Atherosclerotic heart disease of native coronary artery without angina pectoris (principal); I10 Essential (primary) hypertension; E78.00 Pure hypercholesterolemia, unspecified; I25.2 Old myocardial infarction; F17.200 Nicotine dependence, unspecified, uncomplicated; Z95.0 Presence of cardiac pacemaker; Z82.49 Family history of ischemic heart disease and other diseases of the circulatory system
CPT/HCPCS: 78452; 93017; 96374; A9500

== ENCOUNTER 2020-11-30 11:45 | Inpatient (IN) | payer MEDICAID ==
[~2020-11-30] VITALS: Ht 188 cm; Wt 91.6 kg
[~2020-11-30 11:45] MED LIST changes: -METO-169 PO; +METO-289 PO
[2020-11-30] MEDS ORDERED: ASPirin 81 mg TAB PO ONE (12:00)
[2020-11-30] MEDS ORDERED: ONDANSETRON HCL 4 MG/2 ML VIAL IV ONE (12:00)
[2020-11-30] MEDS ORDERED: MORPHINE SULFATE 4 MG/ML SYR/VIAL IV ONE (12:00)
[2020-11-30 12:30] LABS: Basophils # (auto) 0.1 10 ^3/uL (0-0.2); Eosinophils # (auto) 0.1 10 ^3/uL (0-0.8); Eosinophils % (auto) 1.8 % (0.0-7.0); Hematocrit 48.4 % (41.0-53.0); Hemoglobin 16.5 g/dL (13.5-17.5); Lymphocytes # (auto) 1.7 10 ^3/uL (0.4-5.4); Lymphocytes % (auto) 24.9 % (10.0-50.0); Mean Corpuscular Hemoglobin 30.5 pg (28.0-32.0); Mean Corpuscular Hgb Conc. 34.2 g/dL (32.0-36.0); Mean Corpuscular Volume 89.2 fL (80.0-100.0); Monocytes # (auto) 0.3 10 ^3/uL (0-1.3); Neutrophils # (auto) 4.7 10 ^3/uL (1.6-8.6); Neutrophils % (auto) 68.3 % (37.0-80.0); Nucleated Red Blood Cells % 0.1 %; Platelet Count (auto) 187 10^3/uL (140-450); Red Blood Cells 5.42 10^6/uL (4.5-5.90); Red Cell Distribution Width 14.3 % (11.8-14.3); White Blood Cell 6.8 10^3/uL (4.4-10.8)
[2020-11-30 12:53] LABS: Albumin 3.5 g/dL (3.4-5.0); Anion Gap 10 (5-15); Blood Urea Nitrogen 13 mg/dL (7-18); Calcium 8.4 mg/dL (8.5-10.1); Carbon Dioxide 24 mmol/L (21-32); Chloride 107 mmol/L (98-107); Glucose 150 mg/dL (74-106); Magnesium 2.4 mg/dL (1.6-2.6); Potassium 3.5 mmol/L (3.5-5.1); Sodium 141 mmol/L (136-145)
[2020-11-30 12:59] LABS: Alanine Aminotransferase 20 U/L (16-61); Alkaline Phosphatase 129 U/L (45-117); Aspartate Aminotransferase 15 U/L (15-37); BUN/Creatinine Ratio 8.4; Bilirubin, Total 0.3 mg/dL (0.2-1.0); GFR African American 59 mL/min; GFR Non-African American 49 mL/min; Total Protein 6.9 g/dL (6.4-8.2)
[2020-11-30] MEDS ORDERED: METOCLOPRAMIDE HCL 5MG/ml INJ 2ml VIAL IV PRN (13:15)
[2020-11-30] MEDS ORDERED: TEMAZEPAM 15 MG CAP PO PRN (13:15)
[2020-11-30] MEDS ORDERED: HYDROcodone-ACET 5/325MG TAB PO PRN (13:15)
[2020-11-30] MEDS ORDERED: ACETAMINOPHEN 325 MG TAB PO PRN (13:15)
[2020-11-30] MEDS ORDERED: NITROGLYCERIN 0.4 MG SL TAB SL PRN (13:15)
[2020-11-30] MEDS ORDERED: ALUM & MAG HYDROX-SIMETH LIQ(MAALOX) 30 ML PO PRN (13:15)
[2020-11-30] MEDS ORDERED: MORPHINE SULF INJ 2 MG/ML SYRINGE 1ML IV PRN (13:15)
[2020-11-30] MEDS ORDERED: DEXTROSE (50%) 50ML SYRG IV PRN (13:15)
[2020-11-30 13:16] LABS: INR 4.05 (0.9-1.15)
[2020-11-30] MEDS: InsuLIN REG 1unit/0.01ml Soln (100units/ml) SC SCH ×2 (16:47→21:18)
[2020-11-30] MEDS: ACCU-CHEK COMFORT CURVE STRIP VI SCH ×2 (16:48→21:18)
[2020-11-30 17:57] VITALS: BP 154/100
[2020-11-30] MEDS ORDERED: TAMSULOSIN HYDROCHLORIDE 0.4 MG CAP PO SCH (18:00)
[2020-11-30 20:00] VITALS: BP 148/97
[2020-11-30] MEDS: PANTOPRAZOLE 40 MG TAB PO SCH (21:18)
[2020-11-30] MEDS: MORPHINE SULF INJ 2 MG/ML SYRINGE 1ML IV PRN (21:19)
[2020-11-30 22:00] VITALS: BP 148/97
[2020-11-30] MEDS ORDERED: ATORVASTATIN 20 MG TAB PO SCH (22:00)
[2020-12-01 01:10] LABS: Urine Bacteria FEW /hpf (None Seen); Urine Blood Negative /uL (Negative); Urine WBC <1 /hpf (0 - 3)
[2020-12-01 01:19] LABS: Alcohol, Urine < 3.0 mg/dL (0-10); Amphetamine Screen, Urine POSITIVE (NEGATIVE); Barbiturate Scree,Urine NEGATIVE (NEGATIVE); Benzodiazephine Screen, Urine NEGATIVE (NEGATIVE); Cannabinoid Screen, Urine NEGATIVE (NEGATIVE); Cocaine Screen, Urine NEGATIVE (NEGATIVE); Phencyclidine Screen, Urine NEGATIVE (NEGATIVE)
[2020-12-01 01:27] LABS: Opiate Scree,Urine POSITIVE (NEGATIVE)
[2020-12-01 05:00] VITALS: BP 140/95
[2020-12-01 06:11] LABS: Basophils # (auto) 0.1 10 ^3/uL (0-0.2); Eosinophils # (auto) 0.1 10 ^3/uL (0-0.8); Eosinophils % (auto) 2.1 % (0.0-7.0); Hematocrit 45.1 % (41.0-53.0); Hemoglobin 15.3 g/dL (13.5-17.5); Lymphocytes # (auto) 1.8 10 ^3/uL (0.4-5.4); Lymphocytes % (auto) 28.2 % (10.0-50.0); Mean Corpuscular Hemoglobin 30.2 pg (28.0-32.0); Mean Corpuscular Hgb Conc. 33.9 g/dL (32.0-36.0); Mean Corpuscular Volume 89.3 fL (80.0-100.0); Monocytes # (auto) 0.3 10 ^3/uL (0-1.3); Monocytes % (auto) 5.2 % (0.0-12.0); Neutrophils # (auto) 4.1 10 ^3/uL (1.6-8.6); Neutrophils % (auto) 63.5 % (37.0-80.0); Nucleated Red Blood Cells % 0.1 %; Platelet Count (auto) 169 10^3/uL (140-450); Red Blood Cells 5.05 10^6/uL (4.5-5.90); Red Cell Distribution Width 14.6 % (11.8-14.3); White Blood Cell 6.5 10^3/uL (4.4-10.8)
[2020-12-01 06:12] LABS: INR 3.16 (0.9-1.15)
[2020-12-01] MEDS: ACCU-CHEK COMFORT CURVE STRIP VI SCH ×2 (06:14→12:19)
[2020-12-01] MEDS: InsuLIN REG 1unit/0.01ml Soln (100units/ml) SC SCH ×2 (06:14→11:30)
[2020-12-01 06:51] LABS: Cholesterol 197 mg/dL (< 200); HDL Cholesterol 43 mg/dL (40-59); LDL Cholesterol 133 mg/dL (< 100); Triglycerides 180 mg/dL (< 150)
[2020-12-01] MEDS: MORPHINE SULF INJ 2 MG/ML SYRINGE 1ML IV PRN (08:49)
[2020-12-01 09:00] VITALS: BP 155/93
[2020-12-01] MEDS: PANTOPRAZOLE 40 MG TAB PO SCH (09:54)
[2020-12-01] MEDS ORDERED: CLOPIDOGREL BISULFATE 75 MG TAB PO SCH (10:00)
[2020-12-01] MEDS ORDERED: ALLOPURINOL 300 MG TAB PO SCH (10:00)
[2020-12-01] MEDS ORDERED: METOPROLOL SUCCINATE XL 50 MG TAB PO SCH (10:00)
[2020-12-01] MEDS ORDERED: RANOLAZINE ER 500 MG TAB PO SCH (10:00)
[2020-12-01] MEDS ORDERED: RANO1000 PO (11:34)
[2020-12-01 13:00] VITALS: BP 155/93
[2020-12-01 13:09] VITALS: BP 124/80
== END 2020-12-01 14:20 | disposition home or self-care (01) | DRG 198 ==
LOC: ER 11:45 → TELE 13:15 → TELE-WESTW 18:02
PROVIDERS: ADMIT Hospitalist; ATTEND Hospitalist
DX: I25.119 Atherosclerotic heart disease of native coronary artery with unspecified angina pectoris (principal); D68.9 Coagulation defect, unspecified; I50.9 Heart failure, unspecified; I13.0 Hypertensive heart and chronic kidney disease with heart failure and stage 1 through stage 4 chronic kidney disease, or unspecified chronic kidney disease; N18.31 Chronic kidney disease, stage 3a; F15.90 Other stimulant use, unspecified, uncomplicated; F17.210 Nicotine dependence, cigarettes, uncomplicated; J44.9 Chronic obstructive pulmonary disease, unspecified; Z20.822 Contact with and (suspected) exposure to COVID-19; Z80.0 Family history of malignant neoplasm of digestive organs; Z80.3 Family history of malignant neoplasm of breast; Z82.49 Family history of ischemic heart disease and other diseases of the circulatory system; Z85.820 Personal history of malignant melanoma of skin; Z95.5 Presence of coronary angioplasty implant and graft; I25.2 Old myocardial infarction
CPT/HCPCS: 36415; 71045; 80053; 80061; 80307; 81001; 82962; 83036; 83735; 83880; 84484; 85025; 85379; 85610; 85730; 87426; 93005; 96374; 96375; 96376; G0378; J2405

== ENCOUNTER → 2020-12-10 | Outpatient (CLI) | payer MEDICAID ==
[~2020-12-10] MED LIST changes: -AMLO-489 PO; -ENOX80IN SC; +RANO1000 PO
== END | disposition home or self-care (01) ==
LOC: Rad HDHVI 14:20
PROVIDERS: ATTEND Internal Medicine
DX: I35.8 Other nonrheumatic aortic valve disorders (principal); I51.7 Cardiomegaly; R07.9 Chest pain, unspecified; E78.5 Hyperlipidemia, unspecified
CPT/HCPCS: 93306

== ENCOUNTER → 2022-01-19 | Outpatient (CLI) | payer MEDICAID ==
[~2022-01-19] VITALS: Ht 188 cm; Wt 95.3 kg
[~2022-01-19] MED LIST changes: +ADENOSINE 80 MG in GIVE UN-DILUTED 0 ML IV ONE; +ADENOSINE 90 MG/30 ML INJ IV ONE; +amLODIPine BESYLATE 5 MG TAB ONE
== END | disposition home or self-care (01) ==
LOC: Rad HDHVI 13:10
PROVIDERS: ATTEND Internal Medicine
DX: I25.10 Atherosclerotic heart disease of native coronary artery without angina pectoris (principal); I25.2 Old myocardial infarction; R07.9 Chest pain, unspecified; R42 Dizziness and giddiness; I10 Essential (primary) hypertension; E78.5 Hyperlipidemia, unspecified; F17.210 Nicotine dependence, cigarettes, uncomplicated; Z82.49 Family history of ischemic heart disease and other diseases of the circulatory system; Z95.0 Presence of cardiac pacemaker
CPT/HCPCS: 78452; 93005; 96374; 96375; A9500; J0153

== ENCOUNTER 2022-10-03 23:37 | Emergency (ER) | payer MEDICAID ==
[~2022-10-03] VITALS: Ht 188 cm; Wt 95.5 kg
[~2022-10-03 23:37] MED LIST changes: -ADENOSINE 80 MG in GIVE UN-DILUTED 0 ML IV ONE; -ADENOSINE 90 MG/30 ML INJ IV ONE; -amLODIPine BESYLATE 5 MG TAB ONE
[2022-10-04 00:52] LABS: INR 3.09 (0.9-1.15)
[2022-10-04 01:08] LABS: Basophils # (auto) 0.1 10 ^3/uL (0-0.2); Eosinophils # (auto) 0.1 10 ^3/uL (0-0.8); Eosinophils % (auto) 0.7 % (0.0-7.0); Hemoglobin 17.7 g/dL (13.5-17.5); Neutrophils # (auto) 7.2 10 ^3/uL (1.6-8.6); White Blood Cell 9.6 10^3/uL (4.4-10.8)
[2022-10-04 01:10] LABS: Basophils % (auto) 0.5 % (0.0-2.0); Hematocrit 50.3 % (41.0-53.0); Lymphocytes # (auto) 1.6 10 ^3/uL (0.4-5.4); Lymphocytes % (auto) 16.3 % (10.0-50.0); Mean Corpuscular Hemoglobin 32.9 pg (28.0-32.0); Mean Corpuscular Hgb Conc. 35.3 g/dL (32.0-36.0); Mean Corpuscular Volume 93.1 fL (80.0-100.0); Monocytes # (auto) 0.7 10 ^3/uL (0-1.3); Monocytes % (auto) 6.8 % (0.0-12.0); Neutrophils % (auto) 75.7 % (37.0-80.0); Nucleated Red Blood Cells % 0.1 %; Red Cell Distribution Width 14.8 % (11.8-14.3)
[2022-10-04 01:14] LABS: Albumin 3.2 g/dL (3.4-5.0); Anion Gap 8 (5-15); BUN/Creatinine Ratio 8.2; Blood Urea Nitrogen 16 mg/dL (7-18); Calcium 7.8 mg/dL (8.5-10.1); Carbon Dioxide 19 mmol/L (21-32); Chloride 110 mmol/L (98-107); GFR African American 45 mL/min; GFR Non-African American 37 mL/min; Glucose 118 mg/dL (74-106); Potassium 4.4 mmol/L (3.5-5.1); Sodium 137 mmol/L (136-145)
[2022-10-04 01:17] LABS: Alanine Aminotransferase 25 U/L (16-61); Alkaline Phosphatase 150 U/L (45-117); Aspartate Aminotransferase 22 U/L (15-37); Bilirubin, Total 0.5 mg/dL (0.2-1.0); Total Protein 7.6 g/dL (6.4-8.2)
[2022-10-04 07:57] VITALS: BP 138/86
== END 2022-10-04 07:56 | disposition left against medical advice (07) ==
LOC: ER 23:37
DX: I82.5Z1 Chronic embolism and thrombosis of unspecified deep veins of right distal lower extremity (principal); R07.89 Other chest pain; I25.10 Atherosclerotic heart disease of native coronary artery without angina pectoris; I10 Essential (primary) hypertension; I25.2 Old myocardial infarction; J44.9 Chronic obstructive pulmonary disease, unspecified; E78.5 Hyperlipidemia, unspecified; F17.210 Nicotine dependence, cigarettes, uncomplicated; Z79.01 Long term (current) use of anticoagulants; Z79.899 Other long term (current) drug therapy; Z91.041 Radiographic dye allergy status
CPT/HCPCS: 36415; 71045; 80053; 84484; 85025; 85610; 93970

== ENCOUNTER → 2023-03-21 | Outpatient (CLI) | payer MEDICAID ==
[~2023-03-21] MED LIST changes: +WARF-113 PO; -WARF6TAB21 PO
== END | disposition home or self-care (01) ==
LOC: Rad HDHVI 13:49
PROVIDERS: ATTEND Internal Medicine Cardiovascular Disease
DX: I10 Essential (primary) hypertension (principal); R00.2 Palpitations
CPT/HCPCS: 93306

== ENCOUNTER → 2023-05-02 | Outpatient (CLI) | payer MEDICAID ==
[~2023-05-02] VITALS: Ht 188 cm; Wt 97.5 kg
[~2023-05-02] MED LIST changes: +ADENOSINE 82 MG in GIVE UN-DILUTED 0 ML IV ONE; +ADENOSINE 90 MG/30 ML INJ IV ONE
== END | disposition home or self-care (01) ==
LOC: Rad HDHVI 13:29
PROVIDERS: ATTEND Internal Medicine Cardiovascular Disease
DX: I25.10 Atherosclerotic heart disease of native coronary artery without angina pectoris (principal); R42 Dizziness and giddiness; E78.00 Pure hypercholesterolemia, unspecified; R00.2 Palpitations; R06.02 Shortness of breath; F17.210 Nicotine dependence, cigarettes, uncomplicated; I25.2 Old myocardial infarction; R07.89 Other chest pain; I11.0 Hypertensive heart disease with heart failure; I95.9 Hypotension, unspecified; I50.43 Acute on chronic combined systolic (congestive) and diastolic (congestive) heart failure; Z95.0 Presence of cardiac pacemaker; Z82.49 Family history of ischemic heart disease and other diseases of the circulatory system; Z79.82 Long term (current) use of aspirin; Z79.899 Other long term (current) drug therapy
CPT/HCPCS: 78452; 93005; 96374; 96375; A9500; J0153

== ENCOUNTER → 2024-02-13 | Outpatient (CLI) | payer OTHER ==
[~2024-02-13] VITALS: Ht 188 cm; Wt 95.3 kg
[~2024-02-13] MED LIST changes: +ADENOSINE 80 MG in GIVE UN-DILUTED 0 ML IV ONE; -ADENOSINE 82 MG in GIVE UN-DILUTED 0 ML IV ONE; -ATOR80TA PO; +AUG875T PO; -CLOP75TA70 PO; +COLCPOW2 PO; -METO-289 PO; +METO-6 PO; -NIAC1TAB30 PO; -RANO1000 PO; +SILD100T PO; -WARF-113 PO; +WARF-66 PO
== END | disposition home or self-care (01) ==
LOC: Rad HDHVI 11:46
PROVIDERS: ATTEND Internal Medicine Cardiovascular Disease
DX: I11.0 Hypertensive heart disease with heart failure (principal); I50.43 Acute on chronic combined systolic (congestive) and diastolic (congestive) heart failure; R07.89 Other chest pain; I25.2 Old myocardial infarction; R06.00 Dyspnea, unspecified; R06.02 Shortness of breath; E78.00 Pure hypercholesterolemia, unspecified; Z95.0 Presence of cardiac pacemaker
CPT/HCPCS: 78452; 93005; 96374; 96375; A9500; J0153

== ENCOUNTER → 2024-02-14 | Outpatient (CLI) | payer OTHER ==
[~2024-02-14] MED LIST changes: -ADENOSINE 80 MG in GIVE UN-DILUTED 0 ML IV ONE; -ADENOSINE 90 MG/30 ML INJ IV ONE
== END | disposition home or self-care (01) ==
LOC: Rad HDHVI 12:47
PROVIDERS: ATTEND Internal Medicine Cardiovascular Disease
DX: I10 Essential (primary) hypertension (principal)
CPT/HCPCS: 93880

== ENCOUNTER → 2024-02-19 | Outpatient (CLI) | payer OTHER | END | disposition home or self-care (01) | LOC: Rad HDHVI 10:33 | PROVIDERS: ATTEND Internal Medicine Cardiovascular Disease | DX: I34.0 Nonrheumatic mitral (valve) insufficiency (principal); I11.9 Hypertensive heart disease without heart failure | CPT/HCPCS: 93306 ==

== ENCOUNTER 2024-02-21 19:59 | Emergency (ER) | payer OTHER, MEDICAID ==
[~2024-02-21] VITALS: Ht 188 cm; Wt 95.5 kg
[2024-02-21 20:40] VITALS: BP 183/93; PULSE 79; RESP 17; O2SAT 97
== END 2024-02-22 02:46 | disposition left against medical advice (07) ==
LOC: ER 19:59
DX: S60.212A Contusion of left wrist, initial encounter (principal); S80.12XA Contusion of left lower leg, initial encounter; S06.891A Other specified intracranial injury with loss of consciousness of 30 minutes or less, initial encounter; I10 Essential (primary) hypertension; E78.5 Hyperlipidemia, unspecified; I25.2 Old myocardial infarction; J44.9 Chronic obstructive pulmonary disease, unspecified; I25.10 Atherosclerotic heart disease of native coronary artery without angina pectoris; F17.210 Nicotine dependence, cigarettes, uncomplicated; Z98.890 Other specified postprocedural states; Z79.899 Other long term (current) drug therapy; W11.XXXA Fall on and from ladder, initial encounter; Y93.89 Activity, other specified; Y92.89 Other specified places as the place of occurrence of the external cause; Y99.8 Other external cause status
CPT/HCPCS: 70450; 73110; 73590

== ENCOUNTER → 2024-03-25 | Outpatient (CLI) | payer MEDICAID, OTHER ==
[~2024-03-25] MED LIST changes: +IOHEXOL 350 MG/ML 100ML IJ ONE; -TAMS0.4C36 PO; +TAMS0.4C39 PO
[2024-03-25 10:20] VITALS: BP 159/88; PULSE 81; RESP 16; O2SAT 96
[2024-03-25] MEDS: SODIUM CHLORIDE 0.9% 500 ML IV ONE (10:30)
[2024-03-25 13:20] VITALS: BP 167/72; PULSE 67; RESP 18; O2SAT 96
== END | disposition home or self-care (01) ==
LOC: Rad HDHVI 10:00
PROVIDERS: ATTEND Internal Medicine Cardiovascular Disease
DX: I65.23 Occlusion and stenosis of bilateral carotid arteries (principal); I25.10 Atherosclerotic heart disease of native coronary artery without angina pectoris; J44.9 Chronic obstructive pulmonary disease, unspecified; E78.5 Hyperlipidemia, unspecified; I25.2 Old myocardial infarction; I11.0 Hypertensive heart disease with heart failure; I50.43 Acute on chronic combined systolic (congestive) and diastolic (congestive) heart failure; E78.00 Pure hypercholesterolemia, unspecified; Z79.899 Other long term (current) drug therapy
CPT/HCPCS: 70498; G0463; J7040; Q9967; 96360; 96361

== ENCOUNTER 2024-04-25 08:10 | Day surgery (SDC) | payer OTHER, MEDICAID ==
[2024-04-24 12:09] LABS: Alanine Aminotransferase 19 U/L (7-40); Albumin 4.8 g/dL (3.2-4.8); Alkaline Phosphatase 106 U/L (46-116); Anion Gap 7 (5-15); Aspartate Aminotransferase 11 U/L (13-40); BUN/Creatinine Ratio 10.1 (10.0-20.0); Bilirubin, Total 1.2 mg/dL (0.2-1.0); Blood Urea Nitrogen 17 mg/dL (9-23); Calcium 9.6 mg/dL (8.7-10.4); Carbon Dioxide 23 mmol/L (20-30); Chloride 113 mmol/L (98-107); Glucose 96 mg/dL (74-106); Potassium 4.1 mmol/L (3.5-5.1); Sodium 143 mmol/L (136-145); Total Protein 7.2 g/dL (5.7-8.2)
[2024-04-24 12:11] LABS: INR 1.7 (0.9-1.15); Partial Thromboplastin Time 27.3 SEC (24.5-34.5); Prothrombin Time 17.3 sec (9.3-11.8)
[2024-04-24 12:38] LABS: Basophils # (auto) 0 10 ^3/uL (0-0.2); Basophils % (auto) 0.6 % (0.0-2.0); Eosinophils # (auto) 0.1 10 ^3/uL (0-0.8); Eosinophils % (auto) 1.5 % (0.0-7.0); Hematocrit 47.1 % (41.0-53.0); Hemoglobin 16.5 g/dL (13.5-17.5); Lymphocytes # (auto) 1.9 10 ^3/uL (0.4-5.4); Lymphocytes % (auto) 22.9 % (10.0-50.0); Mean Corpuscular Hemoglobin 32.5 pg (28.0-32.0); Monocytes # (auto) 0.5 10 ^3/uL (0-1.3); Monocytes % (auto) 6.4 % (0.0-12.0); Neutrophils # (auto) 5.6 10 ^3/uL (1.6-8.6); Neutrophils % (auto) 68.6 % (37.0-80.0); Nucleated Red Blood Cells % 0.3 %; Platelet Count (auto) 154 10^3/uL (140-450); Red Blood Cells 5.07 10^6/uL (4.5-5.90); Red Cell Distribution Width 16.4 % (11.8-14.3); White Blood Cell 8.2 10^3/uL (4.4-10.8)
[2024-04-25] VITALS (8 sets, daily range): BP systolic 118–155; BP diastolic 71–103; PULSE 74–82; RESP 14–21; TEMP 97.6; O2SAT 95–97
[~2024-04-25] VITALS: Ht 188 cm; Wt 89.8 kg
[~2024-04-25 08:10] MED LIST changes: -AUG875T PO; +CHOL1CAP58 PO; -IOHEXOL 350 MG/ML 100ML IJ ONE; +MEGE20TA3 PO; +METO-159 PO; -METO-6 PO; -SILD100T PO
[2024-04-25] MEDS ORDERED: HEPARIN IN NS 1000Units/500mL 1,500 ML ONE (10:44)
[2024-04-25] MEDS ORDERED: LIDOCAINE 2%HCL (LOCAL ANESTH.) INJ 20ML MDV ONE (10:44)
[2024-04-25] MEDS ORDERED: fentaNYL CITRATE 100 MCG/2 ML VL ONE (10:55)
[2024-04-25] MEDS ORDERED: MIDAZOLAM HCL 2MG/2ML 2ml VIAL (1mg/ml) ONE (10:55)
== END 2024-04-25 14:04 | disposition home or self-care (01) ==
LOC: CATH 08:10
PROVIDERS: ATTEND Internal Medicine Cardiovascular Disease
DX: R07.89 Other chest pain (principal); I11.0 Hypertensive heart disease with heart failure; I50.9 Heart failure, unspecified; F17.210 Nicotine dependence, cigarettes, uncomplicated; J44.9 Chronic obstructive pulmonary disease, unspecified; Z82.49 Family history of ischemic heart disease and other diseases of the circulatory system; Z80.0 Family history of malignant neoplasm of digestive organs; Z95.5 Presence of coronary angioplasty implant and graft; Z91.041 Radiographic dye allergy status
CPT/HCPCS: 36415; 80053; 85025; 85610; 85730; 93458; C1760; C1894; J1644; J2250; J3010; Q9967; 99152

== ENCOUNTER → 2024-04-29 | Outpatient (CLI) | payer OTHER | END | disposition home or self-care (01) | LOC: Rad HDHVI 14:22 | PROVIDERS: ATTEND Internal Medicine Cardiovascular Disease | DX: I73.9 Peripheral vascular disease, unspecified (principal); E78.5 Hyperlipidemia, unspecified | CPT/HCPCS: 93925 ==

== ENCOUNTER → 2024-05-06 | Outpatient (CLI) | payer OTHER ==
[~2024-05-06] MED LIST changes: +IODIXANOL 320MG/ML 100ML BTL IV ONE
[2024-05-06 09:55] VITALS: BP 169/115; PULSE 85; RESP 18; O2SAT 98
[2024-05-06 11:01] VITALS: BP 186/110; RESP 89; O2SAT 98
== END | disposition home or self-care (01) ==
LOC: Rad HDHVI 09:39
PROVIDERS: ATTEND Internal Medicine Cardiovascular Disease
DX: K57.30 Diverticulosis of large intestine without perforation or abscess without bleeding (principal); I70.0 Atherosclerosis of aorta; R10.9 Unspecified abdominal pain
CPT/HCPCS: 74177; G0463; Q9967

== ENCOUNTER → 2024-06-13 | Day surgery (SDC) | payer OTHER, MEDICAID ==
[2024-06-11 15:23] LABS: Urine Bacteria None Seen /hpf (None Seen)
[2024-06-11 15:31] LABS: Basophils # (auto) 0.1 10 ^3/uL (0-0.2); Basophils % (auto) 0.9 % (0.0-2.0); Eosinophils # (auto) 0.2 10 ^3/uL (0-0.8); Eosinophils % (auto) 2.6 % (0.0-7.0); Hematocrit 47.9 % (41.0-53.0); Hemoglobin 16.6 g/dL (13.5-17.5); Lymphocytes # (auto) 2.4 10 ^3/uL (0.4-5.4); Lymphocytes % (auto) 35.8 % (10.0-50.0); Mean Corpuscular Hemoglobin 33.1 pg (28.0-32.0); Mean Corpuscular Hgb Conc. 34.7 g/dL (32.0-36.0); Mean Corpuscular Volume 95.4 fL (80.0-100.0); Monocytes # (auto) 0.5 10 ^3/uL (0-1.3); Monocytes % (auto) 7.9 % (0.0-12.0); Neutrophils # (auto) 3.5 10 ^3/uL (1.6-8.6); Neutrophils % (auto) 52.8 % (37.0-80.0); Nucleated Red Blood Cells % 0.1 %; Platelet Count (auto) 167 10^3/uL (140-450); Red Blood Cells 5.03 10^6/uL (4.5-5.90); Red Cell Distribution Width 16.2 % (11.8-14.3); White Blood Cell 6.6 10^3/uL (4.4-10.8)
[2024-06-11 15:36] LABS: Urine Blood Negative /uL (Negative); Urine Clarity Clear (Clear); Urine Color Colorless (Yellow); Urine Protein, UAD Negative (Negative); Urine Specific Gravity 1.011 (1.001-1.035); Urine Urobilinogen Normal (Negative); Urine WBC <1 /hpf (0 - 3)
[2024-06-11 16:00] LABS: Alanine Aminotransferase 27 U/L (7-40); Albumin 4.5 g/dL (3.2-4.8); Alkaline Phosphatase 103 U/L (46-116); Anion Gap 7 (5-15); Aspartate Aminotransferase 14 U/L (13-40); BUN/Creatinine Ratio 12.5 (10.0-20.0); Bilirubin, Total 0.4 mg/dL (0.2-1.0); Blood Urea Nitrogen 22 mg/dL (9-23); Calcium 10.1 mg/dL (8.7-10.4); Carbon Dioxide 24 mmol/L (20-31); Chloride 112 mmol/L (98-107); Glucose 99 mg/dL (74-106); Potassium 4.8 mmol/L (3.5-5.1); Sodium 143 mmol/L (136-145); Total Protein 7.1 g/dL (5.7-8.2)
[2024-06-11 16:02] LABS: INR 1.78 (0.9-1.15); Partial Thromboplastin Time 26.2 SEC (24.5-34.5); Prothrombin Time 18.1 sec (9.3-11.8)
[~2024-06-13] VITALS: Ht 188 cm; Wt 90.7 kg
[~2024-06-13] MED LIST changes: +DexAMETHasone SOD PHOS 10MG/1ML VIAL INJ ONE; +FURO1TAB31 PO; +GABA-1250 PO; -IODIXANOL 320MG/ML 100ML BTL IV ONE; +MEPERIDINE HCL (25 MG/ML) 1ML VIAL ONE; +MIDAZOLAM HCL 2MG/2ML 2ml VIAL (1mg/ml) ONE; +PROPOFOL 10 MG/ML 20 ML IV ONE; +fentaNYL CITRATE 100 MCG/2 ML VL ONE
[2024-06-13 08:14] VITALS: TEMP 97.6
--- NOTE | 2024-06-13 10:31 | DVHHP2 ---
GI H&P Pre-Op Assessment Date: 06/13/24 Chief complaint: colon cancer screening HPI: per clinic note Past medical history: per clinic note Past surgical history: per clinic note Family history: per clinic note Physical exam: General: NAD, AAOX3 HEENT: PERRL, no scleral icterus, normal hearing, gums without lesions or bleeding, oropharynx clear without erythema or exudate. Neck: Supple without enlargement of the thyroid, or lymphadenopathy. Chest: Normal size and shape, no tenderness, lung black clear to auscultation and percussion, nonlabored breathing. Heart: RRR, no murmur Abdomen: non-distended, no tenderness to palpation, +BS, no hepatosplenomegaly Extremities: no edema Neurological: CN II-XII intact, sensation intact in all extremities, 5+ strength in all extremities Skin: No rashes, No jaundice Assessment: - colon cancer screening Plan: - Colonoscopy - Risks (bleeding, infection, perforation, reaction to sedation medications and cardiopulmonary arrest) and benefit of the procedure were explained to patient. Patient agrees to undergo the procedure. FANNY HICKS MD Jun 13, 2024 10:31
--- NOTE | 2024-06-13 10:34 | DVHOP2 ---
Operative Report DATE OF OPERATION: 06/13/24 PROCEDURE: Colonoscopy. PREOPERATIVE INDICATION: The patient is a 64 -year-old male with family history of colon cancer undergoing colonoscopy for colon cancer screening. POSTOPERATIVE DIAGNOSES: 1. Two (3,5 mm) polyps in the cecum were removed hot snare and lost. 2. Six ascending colon polyps (3-5 mm) were removed with hot snare. Some were retrieved. 3. Two descending colon polyps (4, 5 mm) were removed with hot snare and retrieved. 4. Two 1 mm descending colon polyps were removed with biopsy forceps. 5. 2 mm rectal polyp was removed with biopsy forceps. 6. Few diffuse diverticulosis PROCEDURE PERFORMED BY: Orlando Londono M.D. SCOPE: Olympus videocolonoscope. ASA CLASS: 3 PREOPERATIVE MEDICATIONS: MAC with Dr Nuñez PROCEDURE IN DETAIL: After obtaining an informed consent, the patient was jose nestor on left lateral decubitus position. He was then sedated with the above medications. A rectal examination was performed that was normal. The colonoscope was then passed through the anus into the rectosigmoid and through the descending, transverse, and ascending colon up to the cecum with visualization of the appendiceal orifice, base of the cecum and the ileocecal valve. Two (3,5 mm) polyps in the cecum were removed hot snare and lost. Six ascending colon polyps (3-5 mm) were removed with hot snare. Some of the polyps were retrieved. Two descending colon polyps (4, 5 mm) were removed with hot snare and retrieved. Two 1 mm descending colon polyps were removed with biopsy forceps. A 2 mm rectal polyp was removed with biopsy forceps. There was a few diffuse diverticulosis. The colonoscope was then withdrawn. The patient tolerated the procedure well without difficulty. WITHDRAWAL TIME: 19 minutes QUALITY OF THE PREP: [place] Bowel Prep score: 5 COMPLICATIONS : None SPECIMENS: Colon polyps DISPOSITION: D/C to home PLAN: 1. Repeat colonoscopy base on biopsy result. Even if the biopsy is normal, patient will need repeat colonoscopy in three years. ORLANDO LONDONO MD Jun 13, 2024 10:34
--- NOTE | 2024-06-13 10:35 | DVHDS2 ---
Physician Discharge Progress N Final Diagnosis: Colon polyps, diverticulosis Operations or Procedures: Operations or Procedures Colonoscopy with hot snare polypectomy and biopsy polypectomy Condition on Discharge: Good Disposition: Home Discharge Instructions: Diet: Regular Activity: No Restrictions, As Tolerated Medications: Resume the Coumadin tomorrow Follow Up Care: Discharge Statement: "Patient was advised to return to the ER or call 911 if any headaches, dizziness, shortness of breath, chest pain, abdominal pain, bleeding, fevers, or worsening of medical condition. Patient was counseled about treatment plan, medications, possible side effects, patientverbalized understanding. All questions were answered to the best of my ability. This discharge took greater then 30 minutes in planning, reviewing documentation, counseling the patient, and discussing with other team members." FANNY HICKS MD Jun 13, 2024 10:35
[2024-06-13 10:38] VITALS: O2SAT 98
[2024-06-13 11:08] VITALS: BP 135/76; PULSE 88; RESP 17; O2SAT 98
== END | disposition home or self-care (01) ==
LOC: GI 07:49
PROVIDERS: ATTEND Internal Medicine Gastroenterology
DX: R10.9 Unspecified abdominal pain (principal); D12.2 Benign neoplasm of ascending colon; D12.4 Benign neoplasm of descending colon; D12.3 Benign neoplasm of transverse colon; D12.0 Benign neoplasm of cecum; K62.1 Rectal polyp; K57.30 Diverticulosis of large intestine without perforation or abscess without bleeding; K21.9 Gastro-esophageal reflux disease without esophagitis; I13.0 Hypertensive heart and chronic kidney disease with heart failure and stage 1 through stage 4 chronic kidney disease, or unspecified chronic kidney disease; I50.9 Heart failure, unspecified; N18.9 Chronic kidney disease, unspecified; J44.9 Chronic obstructive pulmonary disease, unspecified; F17.210 Nicotine dependence, cigarettes, uncomplicated; Z79.899 Other long term (current) drug therapy; Z85.828 Personal history of other malignant neoplasm of skin; Z95.5 Presence of coronary angioplasty implant and graft; Z95.0 Presence of cardiac pacemaker; Z98.890 Other specified postprocedural states; Z91.041 Radiographic dye allergy status; Z80.0 Family history of malignant neoplasm of digestive organs
CPT/HCPCS: 36415; 45380; 45385; 80053; 81001; 85025; 85610; 85730; 88305; J1100; J2175; J2250; J2704; J3010; J7030

== ENCOUNTER 2025-05-14 14:20 | Outpatient (CLI) | payer OTHER, MEDICAID ==
[~2025-05-14] VITALS: Ht 188 cm; Wt 93.0 kg
[~2025-05-14 14:20] MED LIST changes: -DexAMETHasone SOD PHOS 10MG/1ML VIAL INJ ONE; -MEPERIDINE HCL (25 MG/ML) 1ML VIAL ONE; -MIDAZOLAM HCL 2MG/2ML 2ml VIAL (1mg/ml) ONE; -PROPOFOL 10 MG/ML 20 ML IV ONE; -fentaNYL CITRATE 100 MCG/2 ML VL ONE
[2025-05-14] MEDS ORDERED: ADENOSINE 90 MG/30 ML INJ IV ONE (14:50)
[2025-05-14] MEDS ORDERED: ADENOSINE 78 MG in GIVE UN-DILUTED 0 ML IV ONE (16:15)
== END 2025-05-14 17:00 | disposition home or self-care (01) ==
LOC: Rad HDHVI 14:20
PROVIDERS: ATTEND Internal Medicine Cardiovascular Disease
DX: Z01.810 Encounter for preprocedural cardiovascular examination (principal); I11.0 Hypertensive heart disease with heart failure; I50.33 Acute on chronic diastolic (congestive) heart failure; I25.2 Old myocardial infarction; I45.10 Unspecified right bundle-branch block; I49.1 Atrial premature depolarization; I51.89 Other ill-defined heart diseases; I25.10 Atherosclerotic heart disease of native coronary artery without angina pectoris; I49.5 Sick sinus syndrome; I48.0 Paroxysmal atrial fibrillation; E78.00 Pure hypercholesterolemia, unspecified; F17.210 Nicotine dependence, cigarettes, uncomplicated; R07.89 Other chest pain; R00.2 Palpitations; Z82.49 Family history of ischemic heart disease and other diseases of the circulatory system; Z98.890 Other specified postprocedural states; Z95.0 Presence of cardiac pacemaker
CPT/HCPCS: 78452; 93017; A9500; J0153